=== PATIENT | male | born 2000 | race Caucasian/White ===

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

== ENCOUNTER 2020-05-07 00:43 | Emergency (ER) | payer BC, OTHER, SELFPAY ==
[~2020-05-07] VITALS: Ht 188 cm; Wt 88.5 kg
[2020-05-07] MEDS ORDERED: KETOROLAC 60MG 2ML VIAL IM ONE (01:35)
--- NOTE | 2020-05-07 02:34 | REPVR ---
PROCEDURE INFORMATION: Exam: US Duplex Left Lower Extremity Veins, Limited Exam date and time: 05/07/2020 2:05 AM Age: 19 years old Clinical indication: Pain; Leg, upper; Left; Additional info: Atraumatic left thigh pain TECHNIQUE: Imaging protocol: Real-time Duplex ultrasound of the Left Lower Extremity with 2-D pardo scale, color Doppler flow and spectral waveform analysis with image documentation. Limited exam focused on the left lower extremity veins. COMPARISON: No relevant prior studies available. FINDINGS: Left deep veins: Unremarkable. The common femoral, femoral, proximal profunda femoral and popliteal veins are patent without thrombus. Normal Doppler waveforms. Normal compressibility and/or augmentation response. Left superficial veins: Unremarkable. Saphenofemoral junction is patent without thrombus. Soft tissues: Unremarkable. IMPRESSION: Negative left lower extremity venous duplex exam without evidence of deep venous thrombosis. Electronically signed by: Yuval Jones On 05/07/2020 02:34:44 AM
--- NOTE | 2020-05-07 02:37 | REPVR ---
PROCEDURE INFORMATION: Exam: XR Left Femur Exam date and time: 05/07/2020 2:24 AM Age: 19 years old Clinical indication: Other: Atraumatic left thigh pain TECHNIQUE: Imaging protocol: XR Left femur. Views: 2 views. COMPARISON: No relevant prior studies available. FINDINGS: Bones/joints: Unremarkable. No acute fracture. Soft tissues: Unremarkable. IMPRESSION: Negative left femur. Electronically signed by: Yuval Jones On 05/07/2020 02:37:13 AM
[2020-05-07] MEDS ORDERED: NAPR-837 PO (03:24)
[2020-05-07 03:28] VITALS: BP 130/66
== END 2020-05-07 03:45 | disposition home or self-care (01) ==
LOC: M ED 00:43
DX: S76.312A Strain of muscle, fascia and tendon of the posterior muscle group at thigh level, left thigh, initial encounter (principal); X58.XXXA Exposure to other specified factors, initial encounter; Y92.9 Unspecified place or not applicable; Y93.9 Activity, unspecified; Y99.9 Unspecified external cause status
CPT/HCPCS: 73552; 93971; 96372; 99284; J1885